=== PATIENT | male | born 1980 | race Caucasian/White ===

== ENCOUNTER 2020-11-19 20:14 | Emergency (ER) | payer OTHER ==
[~2020-11-19] VITALS: Ht 195.6 cm; Wt 145.2 kg
[2020-11-19] MEDS ORDERED: HYDROCHLOROTH12.5 M2 PO (21:15)
[2020-11-19] MEDS ORDERED: ULTRAM50 MG PO (21:15)
[2020-11-19 21:35] VITALS: BP 151/70
== END 2020-11-19 21:36 | disposition home or self-care (01) ==
LOC: M.ERS 20:14
DX: M25.562 Pain in left knee (principal); R03.0 Elevated blood-pressure reading, without diagnosis of hypertension; Z87.01 Personal history of pneumonia (recurrent); Z87.442 Personal history of urinary calculi; Z91.030 Bee allergy status

== ENCOUNTER 2020-12-17 18:53 | Emergency (ER) | payer OTHER ==
[~2020-12-17] VITALS: Ht 195.6 cm; Wt 145.2 kg
[~2020-12-17 18:53] MED LIST: HYDROCHLOROTH12.5 M2 PO; ULTRAM50 MG PO
[2020-12-17 20:24] LABS: ABSOLUTE BASOPHILS 0.1 thou/uL (0.0-0.2); ABSOLUTE EOSINOPHILS 0.5 thou/uL (0.0-0.7); ABSOLUTE LYMPHOCYTES 3.2 thou/uL (0.8-5.3); ABSOLUTE MONOCYTES 0.8 thou/uL (0.0-1.2); ABSOLUTE NEUTROPHILS 7.7 thou/uL (1.6-8.1); BASOPHILS 1.1 %; EOSINOPHILS 3.8 %; HEMOGLOBIN 16.3 gm/dL (14.0-18.0); LYMPHOCYTES 25.8 %; MCH 28.5 pg (26.0-34.0); MCHC 33.3 g/dL (28.0-37.0); MCV 85.7 fL (80.0-100.0); MONOCYTES 6.6 %; MPV 7.7 fl. (7.2-11.1); NUCLEATED RBCS 0 /100WBC; PLATELET COUNT* 240 thou/uL (150-400); POLYS 62.7 %; RBC 5.72 mil/uL (4.50-6.00); RDW-CV 14.6 % (10.5-14.5); WBC 12.3 thou/uL (4.0-11.0)
[2020-12-17 20:31] LABS: CALCIUM 8.8 mg/dL (8.5-10.1); CREATININE 1.2 mg/dL (0.6-1.3); POTASSIUM 3.8 mmol/L (3.5-5.1)
[2020-12-17 20:36] LABS: ALBUMIN 3.7 g/dL (3.4-5.0); TOTAL BILIRUBIN 0.5 mg/dL (<0.1-1.0); TOTAL PROTEIN 6.9 g/dL (6.4-8.2)
[2020-12-17] MEDS ORDERED: HYDROCODON-ACE1 EAC7 PO (21:59)
[2020-12-17 22:05] LABS: URINE BILIRUBIN NEGATIVE (Negative); URINE BLOOD NEGATIVE (Negative); URINE CLARITY CLEAR; URINE COLOR YELLOW; URINE GLUCOSE-RANDOM NEGATIVE (Negative); URINE KETONES NEGATIVE (Negative); URINE LEUKOCYTES-REFLEX NEGATIVE (Negative); URINE NITRITE-REFLEX NEGATIVE (Negative); URINE PROTEIN NEGATIVE (Negative); URINE SPECIFIC GRAVITY >= 1.030 (1.005-1.030); URINE UROBILINOGEN 0.2 E.U./dl (0.2-1.0)
[2020-12-17] MEDS ORDERED: FLEXERIL PO (22:10)
[2020-12-17] MEDS ORDERED: MEDROLDOSEPACK PO (22:10)
[2020-12-17] MEDS ORDERED: NAPROSYN500 MG PO (22:10)
[2020-12-17 22:19] VITALS: BP 139/61
== END 2020-12-17 22:20 | disposition home or self-care (01) ==
LOC: M.ERS 18:53
PROVIDERS: Nurse Practitioner Family
DX: M54.42 Lumbago with sciatica, left side (principal); N20.0 Calculus of kidney; M25.552 Pain in left hip; Z87.442 Personal history of urinary calculi; Z91.030 Bee allergy status